=== PATIENT | female | born 1990 | race Caucasian/White ===

== ENCOUNTER 2017-07-14 14:57 | Inpatient (IN) | payer BC, OTHER ==
[~2017-07-14] VITALS: Ht 162.6 cm; Wt 60.3 kg
--- NOTE | 2017-07-15 01:15 | NUR ---
Intake Assessment Px is A&Ox4. Px is ambulatory with steady gait. Speech is clear and audible. Px appears anxious but cooperative. Px has poor eye contact. VS are as follows BP= 108/57, CO= 56, RR= 16, T= 97.0, O2sat= 95% in RA. Px is here for medically supervised withdrawal from ETOH. Px denies seizures due to withdrawal. Px has NKA. Px brought a bottle of Advil as home medication, to be reconciled. Admission process will continue in the unit.
[2017-07-15] MEDS ORDERED: MIRALAX 17 GM POWD.PACK PO PRN (01:30)
[2017-07-15] MEDS ORDERED: MAG HYDROX/AL HYDROX/SIMETH 30 ML LIQUID UDC PO PRN (01:30)
[2017-07-15] MEDS ORDERED: THIAMINE HCL 200 MG/2 ML VIAL IM ONE (01:30)
[2017-07-15] MEDS ORDERED: LORAZEPAM 1 MG TABLET PO PRN ×2 (01:30)
[2017-07-15] MEDS ORDERED: LOPERAMIDE HCL 2 MG CAPSULE PO PRN ×2 (01:30)
[2017-07-15] MEDS ORDERED: LORAZEPAM 2 MG/1 ML VIAL IM PRN (01:30)
[2017-07-15] MEDS ORDERED: MAGNESIUM HYDROXIDE 30 ML LIQUID UDC PO PRN (01:30)
[2017-07-15] MEDS ORDERED: DICYCLOMINE HCL 20 MG TABLET PO PRN (01:30)
[2017-07-15] MEDS ORDERED: ONDANSETRON ODT 4 MG TAB.RAPDIS SL PRN (01:30)
[2017-07-15] MEDS ORDERED: CLONIDINE HCL 0.1 MG TABLET PO PRN (01:30)
[2017-07-15] MEDS ORDERED: ONDANSETRON 4 MG/2 ML VIAL IM PRN (01:30)
[2017-07-15] MEDS ORDERED: IBUPROFEN 600 MG TABLET PO PRN (01:30)
[2017-07-15 01:51] LABS: *URINE HCG, QUAL NEGATIVE (NEGATIVE)
[2017-07-15 02:00] VITALS: BP 102/62
--- NOTE | 2017-07-15 02:00 | NUR ---
Admission Note Px is 27 y/o female who is being admitted for medically supervised withdrawal from ETOH. Px is mildly intoxicated and moderately withdrawing. Px appears anxious and depressed with poor eye contact. Px is A&Ox4. Speech is clear and audible. Px states that withdrawal from ETOH are the following sxs, stomach cramps, bloating, tremors, dizziness, lost of focus, anxiety and depression especially insomnia. I have a very bad insomnia. I haven't slept for 52 hours now. Px denies hx of withdrawal-induced seizure. Px states current substance use as follows: 1. ETOH- Tequila: 6-10 shots daily for 4 to 5 months, last intake was 07/13/2017 of 4-5 shots 2. Marijuana: smoked intermittently, last use was 07/13/2017 Px states she is seeking tx today because she is scared of the physical withdrawal sxs of ETOH. This is her first time in detox center. Px was able to be sober for 1 week last May 2017. Px states that she has difficulty of staying sober due to her emotional vulnerability. Px states I had a suicide idea last week that if I take a full bottle of Ativan, I will not wake up anymore. I dont have that idea anymore today. My friend here helped me look for a detox center, thats why I am here. Px added I have friends here to support me just to stay sober. VS are as follows BP= 102/62, MD= 51, RR= 14, T= 98.1, O2sat= 98% on RA. No pain at the moment. Pulse is regular but bradycardic. Respirations are even and unlabored. Lung sounds are clear. Bowel sounds are active in all quadrants. Skin is intact. Px follows regular diet at home. Px has NKA. Px stands at 5'4" tall and weighs 133 lbs. Px smokes cigarettes 10 to 15 sticks a day. Px reported PMH of anxiety, depression, eating disorder like anorexia and bulimia but not active at the moment. Px was educated about the plan of care including detox, group and individual therapy and D/C planning. Px was encouraged to be open and honest for px's good recovery and successful sobriety.
[2017-07-15 02:02] LABS: *AMPHETAMINE, URINE NEGATIVE (NEGATIVE); *BARBITURATE, URINE NEGATIVE (NEGATIVE); *CANNABINOID, URINE POSITIVE (NEGATIVE); *COCCAINE, URINE NEGATIVE (NEGATIVE); *OPIATE, URINE NEGATIVE (NEGATIVE); *PHENCYCLIDINE SCREEN,URINE NEGATIVE (NEGATIVE)
--- NOTE | 2017-07-15 02:09 | NUR ---
1x dose Thiamine Px received a 1x dose of Vit B1 100 mg IM on right deltoids.
--- NOTE | 2017-07-15 02:09 | NUR ---
PRN medications Px received Ativan 1 mg/tab, 2 tabs PO as PRN med for CIWA 13 and Bentyl 20 mg PO as PRN med for stomach cramps. We'll continue to monitor.
[2017-07-15 02:15] LABS: BASOPHILS # (AUTO) 0.1 K/uL (0.0-8.0); BASOPHILS % (AUTO) 0.8 % (0.0-2.0); EOSINOPHILS # (AUTO) 0.1 K/uL (0.0-0.7); EOSINOPHILS % (AUTO) 1.9 % (0.0-7.0); HEMATOCRIT 37.6 % (31.2-41.9); HEMOGLOBIN 12.8 g/dL (10.9-14.3); LYMPHOCYTES # (AUTO) 2.3 K/uL (20.0-40.0); LYMPHOCYTES % (AUTO) 31.3 % (20.5-51.5); MEAN CORPUSCULAR HEMOGLOBIN 32.3 uug (24.7-32.8); MEAN CORPUSCULAR HGB CONC 34 g/dL (32.3-35.6); MEAN CORPUSCULAR VOLUME 94.8 fL (75.5-95.3); MONOCYTES # (AUTO) 0.5 K/uL (2.0-10.0); MONOCYTES % (AUTO) 7.2 % (0.0-11.0); NEUTROPHILS # (AUTO) 4.4 K/uL (1.8-8.9); NEUTROPHILS % (AUTO) 58.8 % (38.5-71.5); PLATELET COUNT (AUTO) 282 K/uL (179-408); RED BLOOD CELL COUNT(AUTO) 3.96 MIL/uL (3.63-4.92); WHITE BLOOD COUNT (AUTO) 7.5 K/uL (3.8-11.8)
[2017-07-15 02:20] LABS: ALANINE AMINOTRANSFERASE 37 U/L (14-59); ALKALINE PHOSPHATASE 50 U/L (50-136); AMYLASE 73 U/L (25-115); ASPARTATE AMINOTRANSFERASE 20 U/L (15-37); BILIRUBIN,TOTAL 0.4 mg/dL (0.2-1.0); CARBON DIOXIDE 26 mmol/L (21-32); CHLORIDE 104 mmol/L (98-107); CREATININE 1.1 mg/dL (0.6-1.3); GLUCOSE 111 mg/dL (74-106); LIPASE 215 U/L (73-393); MAGNESIUM 2.1 mg/dL (1.8-2.4); POTASSIUM 3.9 mmol/L (3.5-5.1); TOTAL PROTEIN, SERUM 7.4 g/dL (6.4-8.2); UREA NITROGEN, BLOOD 27 mg/dL (7-18)
[2017-07-15 02:31] LABS: THYROID STIMULATING HORMONE 1.747 mIU/mL (0.358-3.740)
[2017-07-15] MEDS ORDERED: LORA1TAB GT (02:42)
[2017-07-15] MEDS ORDERED: IBUP200C92 PO (02:42)
--- NOTE | 2017-07-15 03:10 | NUR ---
Reassessment of anxiety and stomach cramps Px stated that her anxiety and stomach cramps improved. We'll continue to monitor.
[2017-07-15 03:40] LABS: ETHANOL < 3 MG/DL (0-0)
[2017-07-15 04:00] VITALS: BP 98/59
--- NOTE | 2017-07-15 07:10 | NUR ---
End of Shift Note During the shift at 0210, px received 1x dose of Vit B1 100 mg injection, Ativan 2mg PO for CIWA 13 and Bentyl 20 mg PO as PRN med for stomach cramps. They were effective. Pxs oral intake 500 ml, voided 1x, with No BM. Last CIWA 10. AT 0630, px is asleep on bed in left side lying position. Bed in lowest position, side rails up 2x, and call light within reach. We'll continue to monitor. Px endorsed to AM shift nurse.
--- NOTE | 2017-07-15 07:30 | NUR ---
Start of Shift Note Pt. is a 27 y/o female admitted for the medically supervised withdrawal of ETOH. Endorse pt. came in early in the morning and that it is her first time in treatment. Pt. is currently only on PRN medications and is awaiting assessment by MD for further orders. Pt. denies a medical history of seizures and only reports a history of anxiety, depression and anorexia/bulimia. Received pt. in room laying in bed. Upon approach pt. is pleasant but guarded with a flushed face and fine hand tremors. Pt. denies any pain but reports mild light sensitivity . During the PM shift at 0210, px received 1x dose of Vit B1 100 mg injection, Ativan 2mg PO for CIWA 13 and Bentyl 20 mg PO as PRN med for stomach cramps. Last CIWA 10. AT 0630. Bed in lowest position, side rails up 2x, and call light within reach. We'll continue to monitor pt.'s behavior for safety.
[2017-07-15 08:00] VITALS: BP 100/56
[2017-07-15] MEDS: FOLIC ACID 1 MG TABLET PO SCH (08:33)
[2017-07-15] MEDS: MULTIVITAMINS,THERAPEUTIC TABLET PO SCH (08:33)
[2017-07-15] MEDS: THIAMINE HCL 100 MG TABLET PO SCH (08:33)
[2017-07-15] MEDS ORDERED: NICOTINE 14 MG/24HR PATCH TD PRN (11:30)
[2017-07-15] MEDS ORDERED: NICOTINE POLACRILEX 4 MG GUM-PK OF TEN BC PRN (11:30)
[2017-07-15] MEDS: LORAZEPAM 1 MG TABLET PO SCH ×3 (12:43→20:43)
[2017-07-15 12:48] VITALS: BP 100/59
[2017-07-15 16:00] VITALS: BP 91/54
--- NOTE | 2017-07-15 19:01 | NUR ---
End of Shit Pt. is a 27 y/o female admitted for the medically supervised withdrawal of ETOH. Endorse pt. came in early in the morning and that it is her first time in treatment. Pt. was ordered a 4 day ativan taper that began today. Pt. denies a medical history of seizures and only reports a history of anxiety, depression and anorexia/bulimia. Pt. remained lethargic throughout shift preferring to stay in her room for entirety of the day shift. Upon approach pt. is pleasant but guarded with a flushed face and fine hand tremors. Pt. denies any pain but reports mild light sensitivity . No PRN's given during day shift. Last CIWA 12. AT 1600. Pt. had 500 ml of PO intake and voided X 1. Bed in lowest position, side rails up 2x, and call light within reach. Will endorse pt.'s care to oncoming shift.
--- NOTE | 2017-07-15 19:15 | NUR ---
Start of Shift Note: Patient is a 27 y.o female admitted on 07/14/17 for medically supervised withdrawal from ETOH. Patient received asleep in bed but easily arousable. Patient is alert & oriented x4. Patient presented with moist/clammy skin, sweating, fine tremors, anxiety & reports of tingling sensation & feelings of pins & needles in the skin. Patient has been isolated and stayed in her room most of the time. Patient started today on a 4-day Ativan taper and tolerating well. Last CIWA is 12. No PRN medications received during day shift. Encourage pt to increase fluid intake as tolerated . Educated patient of current plan of care for the night and medication regimen. Safety precaution in place. Bed locked in lowest position. Both side rails up. Call light within pt's reach. Will continue to monitor patient.
[2017-07-15 20:00] VITALS: BP 97/54
[2017-07-16] VITALS: BP 96/63
[2017-07-16 04:00] VITALS: BP 101/56
--- NOTE | 2017-07-16 07:02 | NUR ---
End of Shift Note: Patient is a 27 y.o female admitted on 07/14/17 for medically supervised withdrawal from ETOH. Patient remains alert & oriented x4. Upon assessment, patient presented with moist/clammy skin, sweating, fine tremors, anxiety & reports of tingling sensation & feelings of pins & needles in the skin. She started yesterday on a 4-day Ativan taper and tolerating well. Last CIWA 9. No PRN medications received during my shift. Continue to closely monitor vitals and noted WNL. Non pharmacological intervention utilized. Pt slept most of the shift for a total of 11 hours. Fluid intake: 100 ml, Voided 1x with no bowel movement. Encourage pt to increase fluid intake as tolerated. All needs attended & met. Safety measures in place. Will endorse pt to day shift nurse.
--- NOTE | 2017-07-16 07:45 | NUR ---
START OF SHIFT Received report from safety relief valve technician nurse. Pt is lying in bed resting and easily arousable. She is a 27 yo female admitted to [facility] on 07/15 for ETOH withdrawal. Pt is A&O and ambulatory. She started a 4 day Ativan taper on 07/15. Pt reports tingling sensation in toes and lack of appetite. She has a flat affect, depressed mood, and tremors. Pt reports not sleeping for 53 hours prior to admission. She slept for 11 hours last night. Pt is cooperative with treatment. Safety measures in place.
[2017-07-16 08:00] VITALS: BP 103/72
[2017-07-16] MEDS: MULTIVITAMINS,THERAPEUTIC TABLET PO SCH (08:03)
[2017-07-16] MEDS: FOLIC ACID 1 MG TABLET PO SCH (08:03)
[2017-07-16] MEDS: THIAMINE HCL 100 MG TABLET PO SCH (08:04)
[2017-07-16 08:10] LABS: HEPATITIS B SURFACE AG Negative (Negative)
[2017-07-16] MEDS ORDERED: TUBERCULIN,PURIF.PROT.DERIV. 5 TU/0.1 ML TEST ID ONE (09:00)
[2017-07-16] MEDS ORDERED: LORAZEPAM 1 MG TABLET PO SCH ×2 (09:00→21:00)
--- NOTE | 2017-07-16 09:06 | NUR ---
PRN Miralax Pt reports last BM was 07/13. PRN Miralax administered. Encouraged fluids.
--- NOTE | 2017-07-16 10:16 | NUR ---
ENDORSEMENT PROVIDED Endorsed all pt. information to nurse assuming care.
--- NOTE | 2017-07-16 10:17 | NUR ---
Endorse rcvd from am shift nurse, client is in room, a/o x 4. She presents with depressed mood, flat affect, tremors, clammy skin, flushed face, dark circles under eyes, chapped lips, and difficulty concentrating. Client reports constipation, sweats, cold/chills, sense of panic, anxiety, and fatigue. Encourage client to increase PO fluid to facilitated detox and to assist with constipation. Encourage client to attend group therapy to learn skills to maintain sober. Last CIWA 9 @ 0800. PRN Miralax administered for constipation, client reports no BM at this time. Seizure precautions rendered. Call light within reach.
[2017-07-16] MEDS ORDERED: FAMOTIDINE 20 MG TABLET PO PRN (10:45)
[2017-07-16] MEDS: LORAZEPAM 1 MG TABLET PO SCH ×2 (12:32→16:37)
[2017-07-16 12:39] VITALS: BP 98/60
[2017-07-16 16:35] VITALS: BP 110/75
[2017-07-16] MEDS: ACETAMINOPHEN 325 MG TABLET PO PRN (16:37)
--- NOTE | 2017-07-16 16:37 | NUR ---
PRN Tylenol 650mg PO, Motrin 600mg PO administered for LEAL pain level 7/10, frontal area, does not radiate. Encourage client to increase PO fluid as tolerated. Call light within reach.
--- NOTE | 2017-07-16 17:37 | NUR ---
Reassess PRN Tylenol 650mg, Motrin 600mg, client reports some relief from LEAL pain level 2/10,but tolerable. Call light within reach.
--- NOTE | 2017-07-16 19:03 | NUR ---
END OF SHIFT Endorse client to incoming nurse, client is in room, a/o x 4, she continues to present with depressed mood, flat affect, tremors, clammy skin, flushed face, sweats, cold/chills, sense of panic, anxiety, and fatigue. Adequate PO fluid 1650mL, void x 2. Encouragement needed to attend group therapy, client self-isolated in her room. Last CIWA 15 @ 1600. PRN Miralax administered for constipation, no BM reported. Seizure precautions rendered. Call light within reach.
--- NOTE | 2017-07-16 19:15 | NUR ---
Start of Shift Note: Continue to closely monitor patient. Patient received asleep in bed awake, alert & oriented x4. Patient presented with moist/clammy skin, sweating, fine tremors, anxiety, agitation , moderate severe headache & reports of tingling sensation on her toes. Patient stayed in her room most of the time. Patient is on day #2 of her Ativan taper and tolerating well. Last CIWA is 15. Pt received Tylenol, Motrin & Miralax during day shift. Will continue to monitor BM. Encourage pt to increase fluid intake as tolerated . [place]coruage pt to participate in group therapy for relapse prevention. Educated patient of current plan of care for the night and medication regimen. Safety precaution in place. Bed locked in lowest position. Both side rails up. Call light within pt's reach. Will continue to monitor patient.
[2017-07-16 20:00] VITALS: BP 97/65
[2017-07-16] MEDS: GABAPENTIN 300 MG CAPSULE PO SCH (20:21)
[2017-07-17] MEDS ORDERED: L-Theanine (02:54)
[2017-07-17] MEDS ORDERED: [UNRECOGNIZED DRUG - OTHER] (02:54)
[2017-07-17] MEDS ORDERED: Valerian (02:54)
[2017-07-17 04:00] VITALS: BP 98/54
--- NOTE | 2017-07-17 07:05 | NUR ---
End of Shift Note: Continue to closely monitor patient. Patient remains alert & oriented x4. Patient continues to present with moist/clammy skin, sweating, fine tremors, anxiety, agitation, moderate severe headache & reports of tingling sensation on her toes. She continues her Ativan taper and tolerating well. Last CIWA 9 @ 0600. No PRN medications received during my shift. Continue to closely monitor vitals and noted WNL. Non pharmacological intervention utilized. Pt slept for a total of 9 hours. Fluid intake: 591 ml, Voided 2x with no bowel movement. Encourage pt to increase fluid intake as tolerated. All needs attended & met. Safety measures in place. Will endorse pt to day shift nurse.
--- NOTE | 2017-07-17 07:58 | NUR ---
START OF SHIFT NOTE Received report from night nurse, 27 year old female admitted for ETOH withdrawal. Patient continues with Ativan taper tolerating well. Per endorsement patient did not receive any PRN'S, CIWA-9, slept for 6 hours. Received patient alert awake, anxious, agitated,restless, flat facial expression, mood is sad. Patient is due for scheduled medications. All safety measures in place. Will cont to monitor.
[2017-07-17 08:00] VITALS: BP 110/71
[2017-07-17] MEDS: LORAZEPAM 1 MG TABLET PO SCH ×3 (08:22→21:18)
[2017-07-17] MEDS: THIAMINE HCL 100 MG TABLET PO SCH (08:22)
[2017-07-17] MEDS: MULTIVITAMINS,THERAPEUTIC TABLET PO SCH (08:22)
[2017-07-17] MEDS: GABAPENTIN 300 MG CAPSULE PO SCH ×2 (08:22→21:18)
[2017-07-17] MEDS: FOLIC ACID 1 MG TABLET PO SCH (08:22)
[2017-07-17 12:00] VITALS: BP 111/81
--- NOTE | 2017-07-17 13:37 | NUR ---
Client was prompted to attend group sessions and client agreed.
[2017-07-17 16:00] VITALS: BP 103/70
--- NOTE | 2017-07-17 19:19 | NUR ---
END OF SHIFT NOTE Gave report to night nurse, patient admitted for ETOH withdrawal and cont with Ativan taper tolerating well. Patient did not receive any PRN during shift. Vital signs WNL. Patient remain compliant with diet. Patient attended groups and activities. Patient consumed 100% of her meals. Patient is compliant with treatment plan and medications. All safety measures in place. Patient endorsed to night nurse in stable condition.
[2017-07-17] MEDS ORDERED: MAGNESIUM CITRATE 296 ML BOTTLE PO ONE (19:30)
[2017-07-17 20:00] VITALS: BP 109/67
--- NOTE | 2017-07-17 20:00 | NUR ---
START OF SHIFT NOTE RECEIVED REPORT FROM DAY SHIFT NURSE. PATIENT IS A 27 YEAR OLD FEMALE ADMITTED FOR ETOH WITHDRAWAL. CONTINUE ON ATIVAN TAPER. PATIENT DID NOT REQUIRE PRN MEDICATION . LAST CIWA 6. PATIENT PRESENTS WITH FLAT AFFECT, DEPRESSED MOOD, ANXIETY, SWEATING, ABDOMINAL CRAMPING. RESTLESS LEGS , PANICK FEELING AND CONSTIPATION. PATIENT WITH NEW ORDER OF MAGNESIUM CITRATE. ENCOURAGE FLUIDS. SAFETY MEASURES IN PLACE. CALL LIGHT IN REACH. WILL CONTINUE TO MONITOR .
--- NOTE | 2017-07-17 21:19 | NUR ---
ONE TIME MAGNESIUM CITRATE PATIENT WAS C/O NO BOWEL MOVEMENT FOR 2 DAYS. WILL MONITOR FOR EFFECTIVENESS Addendum: 07/18/17 at 0550 by GOYO DE LA VEGA LVN ENCOURAGE FLUIDS
--- NOTE | 2017-07-18 | NUR ---
CIWA DEFERRED PATIENT SLEEPING. RESPIRATION EVEN AND UNLABORED. VS REFUSED. SAFETY MEASURES IN PLACE CALL LIGHT IN REACH. WILL CONTINUE TO MONITOR
--- NOTE | 2017-07-18 04:00 | NUR ---
CIWA DEFERRED PATIENT SLEEPING. RESPIRATION EVEN AND UNLABORED. VS REFUSED. SAFETY MEASURES IN PLACE CALL LIGHT IN REACH. WILL CONTINUE TO MONITOR
--- NOTE | 2017-07-18 07:23 | NUR ---
END OF SHIFT NOTE PATIENT SLEPT 6 HOURS. FLUID INTAKE 855 ML. VOIDED X 2. BM X 1. MONITORED PATIENT THROUGHOUT SHIFT. CONTINUE ON ATIVAN TAPER, TOLERATED WELL. PATIENT COMPLIANT WITH MEDICATION AND TREATMENT PLAN. PATIENT PRESENTED WITH FLAT AFFECT, DEPRESSED MOOD, ANXIETY, SWEATING, ABDOMINAL CRAMPING. RESTLESS LEGS , PANIC FEELING AND CONSTIPATION BEGINNING OF SHIFT. PATIENT WITH NEW ORDER OF MAGNESIUM CITRATE, EFFECTIVE. PATIENT HAD BM X 1. ENCOURAGED FLUIDS. SAFETY MEASURES IN PLACE. CALL LIGHT IN REACH. WILL CONTINUE TO MONITOR . LAST CIWA 7.
--- NOTE | 2017-07-18 07:55 | NUR ---
START OF SHIFT NOTE Received report from night nurse, 27 year old female admitted for ETOH withdrawal. Patient continues with Ativan taper tolerating well. Per endorsement patient received one time magnesium citrate effective per night nurse, SARAH, slept for 6 hours. Received patient alert awake, anxious, agitated, restless, labile facial expression. Patient is due for scheduled medications. All safety measures in place. Will cont to monitor.
[2017-07-18 08:00] VITALS: BP 103/68
[2017-07-18] MEDS: MULTIVITAMINS,THERAPEUTIC TABLET PO SCH (08:20)
[2017-07-18] MEDS: LORAZEPAM 1 MG TABLET PO SCH ×2 (08:21→21:50)
[2017-07-18] MEDS: THIAMINE HCL 100 MG TABLET PO SCH (08:21)
[2017-07-18] MEDS: FOLIC ACID 1 MG TABLET PO SCH (08:21)
[2017-07-18] MEDS: GABAPENTIN 300 MG CAPSULE PO SCH ×2 (08:21→21:50)
[2017-07-18 12:00] VITALS: BP 118/65
[2017-07-18 16:00] VITALS: BP 103/74
--- NOTE | 2017-07-18 19:00 | NUR ---
END OF SHIFT NOTE Gave report night nurse, patient admitted for ETOH withdrawal and cont with Ativan taper tolerating well. Patient did not receive any PRN during shift. Vital signs WNL. Patient attended groups and activities. Patient is compliant with treatment plan and medications. Encourage PO fluids as tolerated. All safety measures in place. Patient endorsed to night nurse in stable condition.
[2017-07-18 20:00] VITALS: BP 109/76
--- NOTE | 2017-07-18 20:00 | NUR ---
START OF SHIFT NOTE RECEIVED REPORT FROM DAY SHIFT NURSE. PATIENT IS A 27 YEAR OLD FEMALE ADMITTED FOR ETOH WITHDRAWAL. PATIENT IS ON 4TH DAY OF HER 4 DAY ATIVAN TAPER. PATIENT DID NOT REQUIRE PRN MEDICATION . LAST CIWA 5 . RECEIVED PATIENT ALERT AND ORIENTED X 4. RESPIRATION EVEN AND UNLABORED. PATIENT WITH FLAT AFFECT AND DEPRESSED MOOD . PATIENT PRESENTS WITH ANXIETY, SWEATING, RESTLESS LEGS AND FATIGUE. SAFETY MEASURES IN PLACE. CALL LIGHT IN REACH. WILL CONTINUE TO MONITOR.
[2017-07-19] VITALS: BP 116/72
--- NOTE | 2017-07-19 | NUR ---
CIWA DEFERRED PATIENT IN BED WITH EYES CLOSED. RESPIRATION EVEN AND UNLABORED. WILL CONTINUE TO MONITOR.
[2017-07-19] MEDS: diphenhydrAMINE 50 MG CAPSULE PO PRN ×2 (00:11→22:43)
[2017-07-19] MEDS: ACETAMINOPHEN 325 MG TABLET PO PRN (00:11)
--- NOTE | 2017-07-19 00:11 | NUR ---
PRN TYLENOL AND BENADRYL ADMINISTRATION PATIENT C/O HEADACHE AND REQUESTS FOR SLEEP AID. WILL MONITOR FOR EFFECTIVENESS
--- NOTE | 2017-07-19 01:11 | NUR ---
PRN TYLENOL AND BENADRYL RE-ASSESSMENT PATIENT IN BED WITH EYES CLOSED. NO FACIAL GRIMACING. RESPIRATION EVEN AND UNLABORED. WILL CONTINUE TO MONITOR
--- NOTE | 2017-07-19 04:00 | NUR ---
CIWA DEFERRED PATIENT IN BED WITH EYES CLOSED. RESPIRATION EVEN AND UNLABORED. VS REFUSED. WILL CONTINUE TO MONITOR.
--- NOTE | 2017-07-19 07:00 | NUR ---
END OF SHIFT NOTE PATIENT SLEPT 7 HOURS. FLUID INTAKE 855 ML. VOIDED X 2. NO BM. MONITORED PATIENT THROUGHOUT SHIFT. SCHEDULED MEDICATION AND ATIVAN TAPER GIVEN ORDERED, TOLERATED WELL AND NO ADVERSE REACTION. PATIENT WAS GIVEN PRN TYLENOL FOR HEADACHE 0011 AND REQUESTED FOR SLEEP AID, PRN BENADRYL GIVEN AND 0011. PATIENT COMPLIANT WITH MEDICATION AND TREATMENT PLAN. CONTINUE TO ENCOURAGE FLUIDS. SAFETY MEASURES IN PLACE. CALL LIGHT IN REACH. WILL CONTINUE TO MONITOR. LAST CIWA 7.
--- NOTE | 2017-07-19 07:59 | NUR ---
START OF SHIFT PT IS A 27 Y/O F ADMITTED ON 07/14/17 FOR ETOH WITHDRAWAL. PT IS PLACED ON 4 DAY ATIVAN TAPER; TODAY BEING THE LAST DAY AND TOLERATING WELL. RECEIVED PT A/OX4, HAS A FLAT AFFECT, RESPIRATIONS EVEN AND UNLABORED. PT PRESENTS ANXIETY, RESTLESSNESS, GUARDED. LAST CIWA 11; PT SLEPT 7 HRS PER DRAG SEINER NURSE. ENCOURAGED PT TO INCREASE FLUIDS TOLERATED TO FACILIATE IN DETOX AND FOR HYDRATION. SIDE RAILS UPX2, BED IN LOW POSITION, CALL LIGHT WITHIN REACH. SAFETY MEASURES IN PLACE. WILL CONTINUE TO MONITOR.
[2017-07-19 08:00] VITALS: BP 90/55
[2017-07-19] MEDS: MULTIVITAMINS,THERAPEUTIC TABLET PO SCH (08:33)
[2017-07-19] MEDS: FOLIC ACID 1 MG TABLET PO SCH (08:33)
[2017-07-19] MEDS: GABAPENTIN 300 MG CAPSULE PO SCH ×2 (08:33→22:43)
[2017-07-19] MEDS: THIAMINE HCL 100 MG TABLET PO SCH (08:33)
[2017-07-19] MEDS ORDERED: LORAZEPAM 1 MG TABLET PO SCH (09:00)
[2017-07-19 12:00] VITALS: BP 108/77
[2017-07-19 16:00] VITALS: BP 108/75
--- NOTE | 2017-07-19 19:01 | NUR ---
END OF SHIFT LAST CIWA 7 @1600. PT HAS BEEN GIVEN NO PRNS DURING SHIFT. PT HAS BEEN ATTENDING AND PARTICIPATING IN GROUPS. PT HAS COMPLETED THE ATIVAN TAPER AND TOLERATED WELL. PT IS MEDICALLY CLEARED TO BE DISCHARGED TOMORROW. FLUID INTAKE 2000 ML, VOIDED X5, BM 0. PT ATE MOSTLY 100% OF MEALS. SAFETY MEASURES IN PLACE. WILL GIVE ENDORSEMENT TO FOOD SERVICE ASSISTANT.
--- NOTE | 2017-07-19 19:16 | NUR ---
Start of shift note Received report from day shift nurse. Pt is a 27 yo female, A+Ox4, presenting to [facility] for ETOH withdrawal. Pt noted to be restless, anxious, and agitated. Pt has HX of anxiety, depression, and eating disorders which will be monitored during shift. Pt has completed 4 day Ativan taper, tolerated well, and is due for discharge tomorrow. Respirations even and unlabored. Will continue to monitor.
[2017-07-19 20:10] VITALS: BP 112/64
--- NOTE | 2017-07-19 22:43 | NUR ---
PRN Benadryl PT c/o inability to sleep and requested for PRN Benadryl. Medication given and tolerated well. Will reassess within 1 HR. Will continue to monitor.
[2017-07-19] MEDS ORDERED: MAGNESIUM CITRATE 296 ML BOTTLE PO ONE (23:15)
--- NOTE | 2017-07-19 23:40 | NUR ---
PRN Benadryl Reassessment Medication effective. Pt is resting well in bed. No s/s of ASE noted at this time. Respirations even and unlabored. Will continue to monitor.
--- NOTE | 2017-07-19 23:51 | NUR ---
One time Magnesium Citrate Pt c/o constipation and requested for Magnesium Citrate. MD notified, order given and carried out. Medication given to patient and tolerated well. Will reassess within 1 HR. Will continue to monitor.
[2017-07-20 00:19] VITALS: BP 117/68
--- NOTE | 2017-07-20 00:45 | NUR ---
One time Magnesium Citrate Reassessment NO s/s of ASE noted at this time. Respirations even and unlabored. Will continue to monitor for BM. Will continue to monitor.
[2017-07-20] MEDS ORDERED: GABA-534 PO (00:48)
[2017-07-20] MEDS ORDERED: DICY20TA28 PO (00:48)
[2017-07-20 04:31] VITALS: BP 124/75
--- NOTE | 2017-07-20 07:00 | NUR ---
End of shift note Pt was continuously noted to be restless, anxious, and agitated. Pt remained in room for majority of shift except to get food from kitchen, to go smoke on smoking patio, and to interact with other patients in recreational room. Pt has completed 4 day Ativan taper, tolerated well, and is due for discharge today. Pt was given PRN Benadryl @2243 and One time dose of Magnesium citrate @2351. Pt slept for a total of 7 HRS. Last CIWA: 4 @0400. Respirations even and unlabored. Will endorse to day shift nurse.
--- NOTE | 2017-07-20 07:14 | NUR ---
Start of Shift Notes: Received patient in her room. Laying in bed with eyes closed. Arousable when her name is called. Denies S/I or H/I noted. No AV hallucinations noted. Patient is a 27 year old female admitted for ETOH withdrawal who was placed on a 4-day Ativan taper as ordered. No adverse reactions noted. Patient completed taper and will be discharging today. Educated patient on the discharge process. She verbalized good understanding. PRN Benadryl given during the night. Slept for 8 hours. Mag Citrate given for constipation with results pending. Will continue to monitor.
[2017-07-20 08:00] VITALS: BP 97/68
[2017-07-20] MEDS: FOLIC ACID 1 MG TABLET PO SCH (08:44)
[2017-07-20] MEDS: MULTIVITAMINS,THERAPEUTIC TABLET PO SCH (08:44)
[2017-07-20] MEDS: THIAMINE HCL 100 MG TABLET PO SCH (08:44)
[2017-07-20] MEDS: GABAPENTIN 300 MG CAPSULE PO SCH (08:44)
--- NOTE | 2017-07-20 09:25 | NUR ---
Discharged: Patient education provided regarding her discharge instructions. Patient verbalized good understanding of all teachings. All discharge paperwork necessary were signed and placed inside duffel bag with her toiletries and home meds. CIWA 5 due to anxiety regarding the discharge process. VS stable. Denies S/I or H/I noted. No AV hallucinations. CONCRETE ENGINEERING TECHNICIAN cabinet checked. Toiletries checked and returned. Home meds returned. Picked up by [facility] to be transported to [facility].
== END 2017-07-20 09:25 | DRG 895 ==
LOC: SRC 23:53
PROVIDERS: ADMIT Internal Medicine; ATTEND Internal Medicine
PROC: HZ2ZZZZ Detoxification Services for Substance Abuse Treatment (ICD-10-PCS; principal; 2017-07-14)
PROC: HZ31ZZZ Individual Counseling for Substance Abuse Treatment, Behavioral (ICD-10-PCS; 2017-07-17)
PROC: HZ41ZZZ Group Counseling for Substance Abuse Treatment, Behavioral (ICD-10-PCS; 2017-07-17)
DX: F10.232 Alcohol dependence with withdrawal with perceptual disturbance (principal); F50.9 Eating disorder, unspecified; E86.0 Dehydration; F13.10 Sedative, hypnotic or anxiolytic abuse, uncomplicated; Y90.0 Blood alcohol level of less than 20 mg/100 ml; F41.9 Anxiety disorder, unspecified; Z91.89 Other specified personal risk factors, not elsewhere classified; Z81.1 Family history of alcohol abuse and dependence; F17.210 Nicotine dependence, cigarettes, uncomplicated; F12.90 Cannabis use, unspecified, uncomplicated; F32.9 Major depressive disorder, single episode, unspecified; R73.9 Hyperglycemia, unspecified; Z79.899 Other long term (current) drug therapy
CPT/HCPCS: 36415; 70030-TC; 80307; 80349; 83690; 83735; 84443; 84703; 85025; 86580; 86592; 86705; 86803; 87340; 87806; A4663; G0480; J3411; Q0163